=== PATIENT | male | born 1955 | race Caucasian/White ===

== ENCOUNTER 2017-04-04 12:33 | Day surgery (SDC) | payer MEDICARE, MEDICAID ==
[~2017-04-04 12:33] MED LIST: Buffered Lidocaine 0.9% SYRIN* 5 ML/SYR SYRINGE INTRADERM ONE; Dexamethasone IV* 4 MG/ML 1 ML (4 MG) IV SLOW PU ONE; Metoclopramide IV* 5 MG/ML 2 ML VIAL IV SLOW PU ONE
[2017-04-04] MEDS ORDERED: Dexamethasone IV* 4 MG/ML 1 ML (4 MG) ONE (12:54)
[2017-04-04] MEDS ORDERED: Metoclopramide IV* 5 MG/ML 2 ML VIAL ONE (12:54)
[2017-04-04] MEDS ORDERED: Buffered Lidocaine 0.9% SYRIN* 5 ML/SYR SYRINGE ONE (12:54)
[2017-04-04] MEDS ORDERED: fentaNYL* 50 MCG/ML 2 ML VIAL (100 MCG VIAL) IV PRN (13:22)
[2017-04-04] MEDS ORDERED: oxyCODONE TAB* 5 MG TAB PO PRN (13:22)
[2017-04-04] MEDS ORDERED: HYDROmorphone INJ* 1 MG/ML CARPUJECT SYRINGE IV PRN (13:22)
[2017-04-04] MEDS ORDERED: Ondansetron INJ* 2 MG/ML VIAL IV PRN (13:22)
[2017-04-04] MEDS ORDERED: Levalbuterol 0.63MG/3ML NEB* UNIT OF USE INH PRN (13:22)
[2017-04-04] MEDS ORDERED: Lidocaine 2% PF * 5 ML VIAL ONE (14:11)
[2017-04-04] MEDS ORDERED: Rocuronium* 10 MG/ML VIAL ONE (14:11)
[2017-04-04] MEDS ORDERED: fentaNYL* 50 MCG/ML 2 ML VIAL (100 MCG VIAL) ONE (14:11)
[2017-04-04] MEDS ORDERED: Midazolam* 1 MG/ML 2 ML VIAL (2 MG) ONE (14:11)
[2017-04-04] MEDS ORDERED: Propofol* 10 MG/ML 20 ML BTL IV PUSH ONE (14:11)
[2017-04-04] MEDS ORDERED: Etomidate* 2 MG/ML 10 ML VIAL ONE (14:16)
[2017-04-04] MEDS ORDERED: Esmolol* 10 MG/ML 10 ML (100 mg) ONE (15:37)
[2017-04-04 18:30] VITALS: BP 124/67
--- NOTE | 2017-04-05 00:04 | PRO ---
CC: Dr. Metzger * GASTROENTEROLOGY OPERATIVE REPORT: DATE OF PROCEDURE: 04/04/17 OPERATIVE PROCEDURE: Colonoscopy to terminal ileum. SURGEON: Bernie Sanchez MD ANESTHESIA: General. HISTORY OF PRESENT ILLNESS: Miki is a pleasant 61-year-old male who presents today for a screening colonoscopy. Last colonoscopy was performed in 2006 and was normal at that time. He apparently had significant intolerance to moderate sedation and the patient has elected after discussion with the anesthesiologist to have general anesthesia. PREOPERATIVE DIAGNOSES: 1. Screening colonoscopy. 2. Normal colonoscopy in 2006. POSTOPERATIVE DIAGNOSES: 1. Normal-appearing terminal ileum. 2. Four 2-3 mm sessile polyps in the sigmoid colon with polypectomy. 3. Three 2-3 mm sessile polyps in the rectum with polypectomies. 4. Small nonbleeding internal hemorrhoids on retroflexion. 5. Fair colonoscopy preparation. RECOMMENDATION: 1. We will determine timing of repeat colonoscopy based on biopsy results. DESCRIPTION OF PROCEDURE: Colonoscopy was explained in detail to the patient. The risks, benefits, complications, alternative, and possibilities of missed lesions were explained and understood. Complications included, but were not limited to reaction to anesthesia, aspiration, increased risk of bleeding, and perforation. All questions were answered. The patient demonstrated understanding of the conversation. Informed consent was obtained. Next, the patient was brought to the endoscopy suite, placed in the left lateral recumbent position where blood pressure, cardiac, and oxygen monitors were applied. The patient was found to be a fit candidate for general anesthesia. After adequate sedation was achieved, digital rectal exam was performed, which revealed normal sphincter tone. No palpable masses were appreciated. Next, a standard Olympus adult colonoscope was inserted through the rectum, maneuvered all the way to the cecal base, where the ileocecal valve and appendiceal orifice were identified and photographed. Next, the colonoscope was withdrawn in the fashion that allowed adequate visualization of the bowel. The patient had normal mucosa and vascular pattern. Overall, the patient's colonoscopy prep was fair. Aggressive irrigation and suctioning was performed in order to adequately visualize the mucosa. The cecum, ascending colon, transverse colon, and descending colon were normal appearing. Entry into the sigmoid colon revealed four 2-3 mm sessile polyps, these were removed via jumbo cold forceps. Hemostasis was observed and withdrawal into the rectum revealed another three 2-3 mm sessile polyps. These were also removed via jumbo cold forceps. Hemostasis was seen. On retroflexion, the patient had small nonbleeding internal hemorrhoids. Air was then removed from the patient. The colonoscope was removed from the patient. The patient tolerated the procedure well. There were no immediate complications. After a period of observation, the patient was discharged home with a mule driver in stable condition. Thank you, Dr. Metzger, for allowing us to participate in the care of your patient. If you should have any further questions or concerns, please do not hesitate to contact us. [id number]/[facility] #: [id number] TREVON
--- NOTE | 2017-04-05 00:04 | PRO ---
CC: Dr. Metzger * DATE OF PROCEDURE: 04/04/17 - [facility] OPERATIVE PROCEDURE: Esophagogastroduodenoscopy to the second portion of the duodenum. SURGEON: Bernie Sanchez MD ANESTHESIA: General. HISTORY OF PRESENT ILLNESS: Miki is a pleasant 61-year-old male who presents today for an endoscopy for refractory gastroesophageal reflux disease and dysphagia. PREOPERATIVE DIAGNOSES: 1. Dysphagia. 2. Refractory gastroesophageal reflux disease. POSTOPERATIVE DIAGNOSES: 1. Irregular-appearing Z-line at 38 cm from the incisors with biopsies. 2. Slightly nodular-appearing mid esophagus with biopsies from the mid and proximal esophagus. 3. Moderate antral gastritis with biopsies from the antrum and body to rule out H. pylori. 4. Normal-appearing duodenum to the second portion with biopsies to rule out celiac disease. RECOMMENDATIONS: 1. We will follow up with path results. 2. The patient should follow up in our office to determine further plan of care after review of biopsy results. 3. Continue PPI therapy daily. 4. Encourage antireflux lifestyle modifications. DESCRIPTION OF PROCEDURE: Esophagogastroduodenoscopy was explained in detail to the patient. The risks, benefits, complications, alternatives, and possibilities of missed lesions were explained and understood. Complications included but were not limited to reaction to anesthesia, aspiration, increased risk of bleeding, and perforation. All questions were answered. The patient demonstrated understanding of the conversation. Informed consent was obtained. Next, the patient was brought to the operating room and placed in the left lateral recumbent position where blood pressure, cardiac, and oxygen monitors were applied. The patient was found to be a fit candidate for general anesthesia. After adequate sedation was achieved, a bite block was placed. Next, a standard Olympus adult endoscope was inserted per os under direct visualization into the first and second portion of the duodenum. First and second portion of the duodenum were grossly normal appearing. Cold forceps biopsies were obtained to rule out celiac disease. Further withdrawal with the endoscope into the gastric lumen revealed moderate erythema consistent with antral gastritis. Cold forceps biopsies were obtained from the antrum and body to rule out H. pylori. On retroflexion, the patient had a normal gastric cardia sling. Further withdrawal of the endoscope in the distal esophagus revealed an irregular appearing Z-line at 38 cm from the incisors. Cold forceps biopsies were obtained from this area. Withdrawal into the mid esophagus revealed some very flat nodules. These areas were biopsied along with the proximal esophagus to also rule out eosinophilic esophagitis. Air was then removed from the patient. Endoscope was removed from the patient. The patient tolerated the procedure well. There were no immediate complications. After a period of observation, the patient was discharged home with the scoop driver in stable condition. Thank you, Dr. Metzger, for allowing us to participate in the care of your patient. If you should have any further questions or concerns please do not hesitate to contact us. [id number]/[facility] #: [id number] TREVON
== END 2017-04-04 16:00 | disposition home or self-care (01) ==
LOC: OR 12:33
PROVIDERS: ATTEND Internal Medicine Gastroenterology
DX: Z12.11 Encounter for screening for malignant neoplasm of colon (principal); K63.5 Polyp of colon; K64.8 Other hemorrhoids; K29.50 Unspecified chronic gastritis without bleeding; K21.0 Gastro-esophageal reflux disease with esophagitis; R13.10 Dysphagia, unspecified; I25.10 Atherosclerotic heart disease of native coronary artery without angina pectoris; F33.9 Major depressive disorder, recurrent, unspecified; E78.00 Pure hypercholesterolemia, unspecified; I10 Essential (primary) hypertension; I25.9 Chronic ischemic heart disease, unspecified; J44.9 Chronic obstructive pulmonary disease, unspecified; Z99.81 Dependence on supplemental oxygen; K62.5 Hemorrhage of anus and rectum; F17.200 Nicotine dependence, unspecified, uncomplicated; I25.2 Old myocardial infarction; Z79.82 Long term (current) use of aspirin; Z88.8 Allergy status to other drugs, medicaments and biological substances; F41.9 Anxiety disorder, unspecified
CPT/HCPCS: 88305; 88342; J1100; J2250; J2704; J2765; J3010